=== PATIENT | male | born 1960 | race Caucasian/White ===

== ENCOUNTER 2022-02-06 17:34 | Emergency (ER) | payer SELFPAY ==
[2022-02-06 17:44] VITALS: BP 171/87; PULSE 88; RESP 18; TEMP 36.8; O2SAT 96; BMI 32.8
--- NOTE | 2022-02-06 18:35 | CRLHL7_ITS ---
For Patients: As a result of the Century Cures Act, medical imaging exams and procedure reports are released immediately into your electronic medical record. You may view this report before your referring provider. If you have questions, please contact your health care provider. INDICATION: Traumatic injury. TECHNIQUE: Three views left hand. COMPARISON: Plain films from 15 September 2020. IMPRESSION: Minor osteoarthritis narrowing DIP joints. 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 No acute traumatic finding. Dictated by Dusty Ascencio MD @ 02/06/2022 7:20:16 PM (Electronically Signed)
[2022-02-06] MEDS: TETANUS/DIPHTH/PERTUSSIS 0.5 ML SYRINGE IM (18:52)
--- NOTE | 2022-02-07 16:42 | ED_ITS ---
HPI - Wound/Laceration General Chief Complaint: Laceration/Wound Stated Complaint: Finger Laceration Time Seen by Provider: 02/06/22 17:56 Source: patient, RN notes reviewed and old records reviewed Mode of arrival: ambulatory Limitations: no limitations History of Present Illness HPI narrative: 61-year-old man presenting to the emergency department after sustaining an injury to his left index and 3rd finger. He has cut his 3rd finger by striking it with a maul. 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 He is able to flex and extend. 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 All this resulted in a partial surgical amputation. This injury however just occurred. He is having some pain. Is calm about it though. Otherwise in usual state of health. Related Data Home Medications Medication Instructions Recorded Confirmed No Known Home Medications 02/06/22 02/06/22 Allergies Allergy/AdvReac Type Severity Reaction Status Date / Time Penicillins Allergy Verified 02/06/22 17:52 Review of Systems Status of ROS: Reports: 6 or more systems reviewed and unremarkable except as noted in History and below [facility] Medical History Abscess of left thumb No significant past medical history Surgical History History of amputation of left thumb Social History Smoking Status: Never smoker Do you use any of these nicotine containing products: None and E-Cigarettes Second hand tobacco smoke exposure: No How often do you have a drink containing alcohol: never AUDIT-C Alcohol total score: 0 Non-prescribed substance use: denies use Exam Narrative: Exam Narrative: Pleasant. Jovial. Looks like he works with his hands. His breathing easily. Skin is warm and dry. Extremities--the left hand in question shows some soft swelling and tenderness with some volar surface bruising around the PIP joint of the 3rd finger. He is able to flex and extend fully. Sensation intact. The index finger over the dorsal surface of the middle phalanx is split. This extends up to the PIP joint as well. The skin is in irregular. Inch and 1/3 in length. The extensor tend on sheath is visible. Looks to have been just superficially. He has intact sensation and intact strength to extension and flexion. Missing the distal aspect of his left thumb. Const: Vital Signs, click to edit/add: Vital Signs - 24 hr 02/06/22 17:44 Temperature 98.2 F Pulse Rate [Pulse Oximeter] 88 Respiratory Rate 18 Blood Pressure [Le ft Upper Arm] 171/87 H Pulse Oximetry 96 Course Course Hospital Course: Injected with a digital block lidocaine. Good wound anesthesia achieved. Scrubbed with Hibiclens and further irrigated under pressure by myself. Sent to x-ray. It x-ray of the hand reviewed by me --do not appreciate any new bony abnormalities. Showed images to Mr. Coto. Returned to sew up this wound. Was repaired with 5 0 Ethilon. Interrupted sutures. With flexion appears to hold well. Control of bleeding also achieved. I did discuss benefit of splinting and wound healing. Mr. Coto though would prefer not to noting limitations. I suspect he would be disinclined to wear this anyway. Vital Signs Vital signs: Initial Vital Signs Temperature 98.2 F 02/06/22 17:44 Temperature Source Temporal Artery Scan 02/06/22 17:44 Pulse Rate 88 02/06/22 17:44 Pulse Rhythm 02/06/22 17:44 Respiratory Rate 18 02/06/22 17:44 Blood Pressure 171/87 H 02/06/22 17:44 Blood Pressure Mean 115 02/06/22 17:44 Blood Pressure Position Sitting 02/06/22 17:44 Pulse Oximetry 96 02/06/22 17:44 Oxygen Delivery Method 02/06/22 17:44 Vital Signs Temperature 98.2 F 02/06/22 17:44 Pulse Rate 88 02/06/22 17:44 Respiratory Rate 18 02/06/22 17:44 Blood Pressure 171/87 H 02/06/22 17:44 Pulse Oximetry 96 02/06/22 17:44 Temperature 98.2 F 02/06/22 17:44 Pulse Rate 88 02/06/22 17:44 Respiratory Rate 18 02/06/22 17:44 Blood Pressure 171/87 H 02/06/22 17:44 Pulse Oximetry 96 02/06/22 17:44 MDM - Wound/Laceration MDM Narrative Medical decision making narrative: I do think it would be prudent to initiate antibiotics as prophylaxis. This was prescribed on departure. See discharge documentation. Was given 5 days of cephalexin from [facility] Discharge Plan Discharge Clinical Impression: Contusion, Finger laceration with complication Patient Disposition: Home, Self-Care Condition: Improved Instructions: Finger Laceration (ED) Additional Instructions: Can clean up initially as needed. Sutures out in? 10 - 12 days. Ok to get wet but avoid soaking while sutures are in. Antibiotic ointment for 5 - 6 days and then to a dry bandage. ? Report spreading redness after 2 days, redness passing the next knuckle, marked increase in pain, purulent drainage, fever. ? for scar reduction/wound healing and I know that some of this will be very important to you :) after scab falls, can apply daily vitamin e oil, emu oil or silicone-containing ointments or bandages.? in particular, protect from the sun for the first 9 - 12 months. ?elevate for comfort.? perhaps up on pillow overnight. can take up to 800 mg of ibuprofen or up to 1000 mg of acetaminophen per dose. Activity Detail: Since we did not splint you here today, do take care to protect it from re-injury for the next 2 weeks. Prescriptions: No Action No Known Home Medications 0RF Follow Up/Referrals: Provider,Not a Local [Primary Care Provider] - Stand Alone Forms: [facility] Info Instructions
== END 2022-02-06 19:51 | disposition home or self-care (01) ==
PROVIDERS: Emergency Provider Family Medicine
DX: S61.213A Laceration without foreign body of left middle finger without damage to nail, initial encounter (principal); W27.8XXA Contact with other nonpowered hand tool, initial encounter
CPT/HCPCS: 90471; 12001; 73130; 90715; 99282; 99283